=== PATIENT | male | born 1985 | race Caucasian/White ===

== ENCOUNTER 2025-07-21 12:09 | Emergency (ER) | payer OTHER, SELFPAY ==
[2025-07-21 12:21] VITALS: BP 116/85; PULSE 89; RESP 16; TEMP 36.9; O2SAT 100
--- NOTE | 2025-07-21 12:25 | ED.MALEGU ---
HPI - Male Genitourinary General Chief complaint: Urogenital-Male Stated complaint: BLADDER PAIN Time Seen by Provider: 07/21/25 12:35 Source: patient and RN notes reviewed Mode of arrival: ambulatory Limitations: no limitations History of Present Illness HPI Narrative: 40-year-old male presents with concern of for dysuria, frequency, urgency, bladder pain for few days. Patient reports many years ago when he started on Humira he had a UTI with similar symptoms that resolved with antibiotics. Reports 10 days ago he had these symptoms that resolved spontaneously and then they have returned. He denies fever, body aches, chills, sweats. Denies back pain or abdominal pain. Denies nausea or vomiting. Denies concern for STDs MD Complaint: dysuria Related Data Allergies Allergy/AdvReac Type Severity Reaction Status Date / Time No Known Allergies Allergy Verified 07/21/25 12:25 Review of Systems Review of Systems: CONSTITUTIONAL: Denies malaise, chills, sweats, or fever. CARDIOVASCULAR: Denies chest pain, palpitations, or edema. RESPIRATORY: Denies cough or dyspnea. GASTROINTESTINAL: Denies abdominal pain, nausea, vomiting, diarrhea GENITOURINARY: Reports dysuria, frequency, urgency, bladder pain. Denies flank pain or hematuria. SKIN: Denies rash or itching. MUSCULOSKELETAL: Denies back pain or myalgia. All systems reviewed & are unremarkable except as noted in HPI and below PMFSH Comments At time of signature, agree with nursing past medical, surgical, social and family history. There is no relevant family history pertinent to the presenting complaint Exam Narrative: GENERAL: Well-appearing, well-nourished, and in no acute distress. HEAD: Normocephalic. EYES: PERRLA, conjunctivae clear. NECK: Supple. No lymphadenopathy CHEST: Clear to auscultation. No respiratory distress. HEART: Regular rate and rhythm. ABDOMEN: Soft, nontender upon palpation, nondistended, no palpable or pulsatile masses, no guarding. No CVA tenderness SKIN: Warm, dry, no rash. NEURO: Alert and oriented x3. PSYCH: Normal mood and affect Course Course Emergency Course: Patient is aware of diagnosis, understands and agrees to treatment plan. Anticipatory guidance given. Patient agrees to follow-up as directed and is aware of reasons to seek care at the emergency department. Portions of this record may have been created with voice recognition software [employer] of Care: Express Care Visit Vital Signs Vital signs: Vital Signs Temperature 98.4 F 07/21/25 12:21 Pulse Rate 89 07/21/25 12:21 Respiratory Rate 16 07/21/25 12:21 Blood Pressure 116/85 07/21/25 12:21 Pulse Oximetry 100 07/21/25 12:21 Oxygen Delivery Room Air 07/21/25 12:21 Temperature 98.4 F 07/21/25 12:21 Pulse Rate 89 07/21/25 12:21 Respiratory Rate 16 07/21/25 12:21 Blood Pressure 116/85 07/21/25 12:21 Pulse Oximetry 100 07/21/25 12:21 Oxygen Delivery Room Air 07/21/25 12:21 Reviewed. Critical Care Time Critical Care Time Critical Care Time: No Discharge Plan Discharge Clinical Impression: Dysuria Patient Disposition: Home Condition: Stable Instructions: Dysuria (ED) Additional Instructions: We will send a urine culture to the lab; if the culture identifies an organism that requires antibiotics, you will receive a phone call from an urgent care staff member and an appropriate antibiotic will be prescribed. -Recommend: increase water intake. Tylenol/ibuprofen as needed for pain or fever -Follow-up with your primary care provider for urine recheck or seek ER visit if condition worsens with high fever, nausea, vomiting and severe back pain. Patient Language: Palauan Prescriptions: New phenazopyridine [Pyridium] 200 mg tablet 200 mg PO TID PRN (Reason: pain) Qty: 6 0RF Follow-up/Referrals: Deny,Nithin Shah MD [Primary Care Provider, Unknown] Time of Disposition: 12:44
[2025-07-21 12:37] LABS: EDUAAPPEAR Clear; EDUABILI Negative (Negative); EDUABLOOD Trace (Negative); EDUACOLOR1 Yellow; EDUAGLUCOSE Negative (Negative); EDUAKETONE Negative (Negative); EDUALEUKO Negative (Negative); EDUANITRATE Negative (Negative); EDUAPH 5.5; EDUAPROTEIN Negative (Negative); EDUASPGRAVITY 1.030; EDUAUROBILI 0.2
== END 2025-07-21 12:54 | disposition home or self-care (01) ==
PROVIDERS: Emergency Provider Nurse Practitioner; PCP Family Medicine
DX: R30.0 Dysuria (principal)
CPT/HCPCS: 81003; 87086; 99213; G0463